=== PATIENT | male | born 1990 | race Two or more races ===

== ENCOUNTER 2016-07-25 15:03 | Emergency (ER) | payer SELFPAY ==
[~2016-07-25] VITALS: Ht 188 cm; Wt 74.1 kg
[2016-07-25 15:11] VITALS: BP 132/80
== END 2016-07-25 15:20 | disposition left against medical advice (07) ==
LOC: EME 15:03
DX: H57.8 Other specified disorders of eye and adnexa (principal); Z53.21 Procedure and treatment not carried out due to patient leaving prior to being seen by health care provider